=== PATIENT | male | born 1980 | race Caucasian/White ===

== ENCOUNTER 2021-02-12 18:34 | Emergency (ER) | payer MEDICAID ==
[~2021-02-12] VITALS: Ht 177.8 cm; Wt 68.0 kg
[~2021-02-12 18:34] MED LIST: AMOXICILLIN500 MG OR; AMOXICILLIN500 MG PO; ASPIRIN325 M1 OR; CEPH500C57 OR; IBU800 MG OR; LORTAB 5 OR; LORTAB5 PO; LOTRISONE CREAM15 GM EX; NAPROSYN500 MG OR; NAPROSYN500 MG PO; NO MEDS; PENICILLN VK500 MG OR; PERCOCET 5/325M1 TAB OR; PROMETHAZINE25 MG OR; TRAMADOL HCL50 MG OR; TRIMOX500 MG PO; ULTRAM50 M1 PO; ZITHROMAX250 MG OR; ZOFRAN ODT4 MG OR
[2021-02-12 19:43] VITALS: BP 132/70
== END 2021-02-12 19:50 | disposition home or self-care (01) ==
LOC: ED 18:34
DX: U07.1 COVID-19 (principal); R19.7 Diarrhea, unspecified; R52 Pain, unspecified

== ENCOUNTER 2022-01-03 18:02 | Emergency (ER) | payer MEDICAID | END 2022-01-03 19:22 | disposition left against medical advice (07) | DRG 951 | LOC: ED 18:02 → LWOBS 19:21 | DX: Z53.21 Procedure and treatment not carried out due to patient leaving prior to being seen by health care provider (principal) ==

== ENCOUNTER 2022-06-11 06:55 | Emergency (ER) | payer MEDICAID ==
[~2022-06-11] VITALS: Ht 177.8 cm; Wt 81.0 kg
[2022-06-11 07:03] VITALS: BP 143/89
[2022-06-11 07:31] VITALS: BP 122/75
[2022-06-11 08:00] VITALS: BP 120/74
[2022-06-11] MEDS ORDERED: AMOXICILLIN500 M2 PO ×2 (08:11→08:46)
[2022-06-11 08:30] VITALS: BP 126/79
[2022-06-11] MEDS ORDERED: AMOXICILLIN500 MG PO (08:34)
== END 2022-06-11 08:30 | disposition home or self-care (01) ==
LOC: ED 06:55
DX: J02.0 Streptococcal pharyngitis (principal); R50.9 Fever, unspecified

== ENCOUNTER 2024-11-16 01:00 | Emergency (ER) | payer SELFPAY ==
[~2024-11-16] VITALS: Ht 177.8 cm; Wt 68.0 kg
[~2024-11-16 01:00] MED LIST changes: +AMOXICILLIN500 M2 PO
[2024-11-16] MEDS ORDERED: AZITHROMYCIN500 MG PO (02:14)
[2024-11-16] MEDS ORDERED: AZITHROMYCIN 250 MG/TAB PO ONE (02:15)
[2024-11-16 02:26] VITALS: BP 127/81
== END 2024-11-16 02:22 | disposition home or self-care (01) | DRG 153 ==
LOC: ED 01:00
DX: J02.9 Acute pharyngitis, unspecified (principal); Z20.822 Contact with and (suspected) exposure to COVID-19